=== PATIENT | female | born 1950 | race Caucasian/White ===

== ENCOUNTER → 2019-09-19 | Outpatient (CLI) | payer BC ==
--- NOTE | 2019-09-19 13:29 | RAD ---
EXAM DESCRIPTION: Ankle,Left 3 Views CLINICAL HISTORY: PAIN IN LEFT ANKLE AND JOINTS OF LEFT FOOT COMPARISON: None. TECHNIQUE: 3 views left FINDINGS: Soft tissue swelling is observed over the lateral malleolus. The ankle mortise is intact. No fracturing is detected. A joint effusion is evident. IMPRESSION: Soft tissue swelling and evidence of a joint effusion are observed. No fracturing is detected. Electronically signed by: Chriss Bryant MD 09/19/2019 1:28 PM [facility]
== END ==
LOC: RAD 12:49
PROVIDERS: ATTEND Family Medicine
DX: M79.9 Soft tissue disorder, unspecified (principal); M25.472 Effusion, left ankle

== ENCOUNTER → 2019-09-26 | Outpatient (CLI) | payer BC ==
--- NOTE | 2019-09-26 18:15 | RAD ---
EXAM DESCRIPTION: Ankle,Left 3 Views CLINICAL HISTORY: ANKLE PAIN COMPARISON: None. TECHNIQUE: 3 views left FINDINGS: Soft tissue swelling is observed over the lateral malleolus. The ankle mortise is intact. No fracturing is detected. IMPRESSION: Soft tissue swelling is observed without evidence of fracturing. Electronically signed by: Chriss Bryant MD 09/26/2019 6:13 PM [facility]
== END ==
LOC: RAD 12:15
PROVIDERS: ATTEND Family Medicine
DX: M25.572 Pain in left ankle and joints of left foot (principal); M79.9 Soft tissue disorder, unspecified

== ENCOUNTER 2019-12-05 | Day surgery (SDC) | payer BC | END 2019-12-05 09:08 | disposition home or self-care (01) | DX: H25.12 Age-related nuclear cataract, left eye (principal) | CPT/HCPCS: 00142; 66984; J2250 ==